=== PATIENT | female | born 2000 | race African-American/Black ===

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

== ENCOUNTER 2023-05-11 12:00 | Emergency (ER) | payer BC, SELFPAY ==
--- NOTE | ~2023-05-11 | XR_ITS ---
XR ankle RT min 3V DATE: 05/11/2023 13:34 INDICATION: Lateral ankle pain after injury TECHNIQUE: 4 views COMPARISON: None FINDINGS: No fracture or dislocation of the ankle or disruption of the ankle mortise. No periosteal r eaction or bone destruction. IMPRESSION: Negative right ankle Reviewed, dictated and finalized at location A. [facility] [employer]ENDANT
--- NOTE | ~2023-05-11 | XR_ITS ---
CORRECTED REPORT changed xr ankle LT to xr ankle RT This report was recreated on 05/12/23 . Original report was [employer] XR ankle RT min 3V DATE: 05/11/2023 12:23 INDICATION: Lateral ankle pain after injury TECHNIQUE: 4 views COMPARISON: None FINDINGS: No fracture or dislocation of the ankle or destruction of the ankle mortise. No periosteal reaction or bone destruction. IMPRESSION: Negative Reviewed, dictated and finalized at location A. [facility] [employer] MTDD IMPRESSION: Negative
[2023-05-11 12:08] VITALS: BP 101/69; PULSE 79; RESP 20; TEMP 36.7; O2SAT 100
--- NOTE | 2023-05-11 13:19 | ED.GENADULT ---
HPI - General Adult General Chief complaint: Extremity Injury, Lower Stated complaint: INJURED R ANKLE Source: patient Mode of arrival: ambulatory Limitations: no limitations History of Present Illness HPI narrative: Patient presents for evaluation of right ankle pain since last night. She twisted her right ankle dancing at her friend's 23st birthday. She states her current pain is 4/10 in severity but it does increase to 7/10 with weightbearing. She describes the pain as it needs to pop . No paresthesias. No loss of ROM but movement makes her symptoms worse. She took some ibuprofen before going to bed last night so is unsure whether it helped alleviate her pain. Related Data Home Medications Medication Instructions Recorded Confirmed Control 05/21/20 Allergies Allergy/AdvReac Type Severity Reaction Status Date / Time amoxicillin Allergy Swelling Verified 05/21/20 10:45 Review of Systems Review of Systems: CONSTITUTIONAL: Denies fever, chills, or sweats. EYES: Denies visual changes, redness, or discharge. ENT: Denies rhinorrhea, congestion, sore throat, or otalgia. CARDIOVASCULAR: Denies chest pain, palpitations, or edema. RESPIRATORY: Denies cough or dyspnea. GASTROINTESTINAL: Denies abdominal pain, nausea, vomiting, or diarrhea. GENITOURINARY: Denies dysuria or hematuria. SKIN: Denies rash or itching. MUSCULOSKELETAL: Reports right ankle pain and swelling NEUROLOGIC: Denies headache, numbness, dizziness, or weakness. PSYCHIATRIC: Denies anxiety or depression. PMFSH Past Medical History Medical History No pertinent past medical history Surgical History Surgical History No pertinent past surgical history Family History Family History Mother Family history non-contributory Social History Social History Alcohol intake: current Alcohol use details: social Gender identity (if verbalized by the patient): Female Spiritual care concerns: No Exam Narrative: GENERAL: Well-appearing, well-nourished, and in no acute distress. HEAD: Normocephalic, atraumatic. EYES: PERRLA and EOMI. ENT: Nares clear, no rhinorrhea or epistaxis. Mucous membranes moist. Oropharynx without tonsillar hypertrophy exudate or other lesions. Bilateral TMs pearly moreau nonbulging NECK: Supple. No adenopathy or masses. No carotid bruits or JVD CHEST: Clear to auscultation. No respiratory distress. No wheezes rales or rhonchi HEART: Regular rate and rhythm. No murmur heard. Normal peripheral pulses. ABDOMEN: Soft, nontender, nondistended, normal active bowel sounds. EXTREMITIES: There is trace nonpitting edema to right ankle. There is tenderness just beneath right lateral malleolus. No crepitus or deformity. Able to dorsi and plantarflex the right foot however pain is reproducible with movement. Sensation intact.. SKIN: Warm, dry, no rash. NEURO: No focal deficits. Alert and oriented x3. PSYCH: Normal mood and affect. Course Course Emergency Course: this is a 23-year-old female who presented for evaluation of right ankle pain following an injury last night. X-ray was negative for fracture. Initial film read left side but was performed on right, which is the affected side. She was given crutches and macie wrap. Advised on RICE therapy. Ibuprofen for pain. follow-up with primary provider. Go to the ER for worsening symptoms. Patient in agreement with plan of care. Level of Care: Express Care Visit Vital Signs Vital signs: Vital Signs Temperature 36.7 C 05/11/23 12:08 Pulse Rate 79 05/11/23 12:08 Respiratory Rate 20 05/11/23 12:08 Blood Pressure 101/69 05/11/23 12:08 Pulse Oximetry 100 05/11/23 12:08 Temperature 36.7 C 05/11/23
== END 2023-05-11 13:21 | disposition home or self-care (01) ==
PROVIDERS: Emergency Provider Nurse Practitioner
DX: S93.401A Sprain of unspecified ligament of right ankle, initial encounter (principal); X50.0XXA Overexertion from strenuous movement or load, initial encounter; Y93.41 Activity, dancing
CPT/HCPCS: 73610; 99213; G0463